=== PATIENT | female | born 1960 | race Caucasian/White ===

== ENCOUNTER 2019-12-15 09:55 | Emergency (ER) | payer SELFPAY ==
[~2019-12-15] VITALS: Ht 154.9 cm; Wt 56.7 kg
[~2019-12-15 09:55] MED LIST: LEVO25TA6 PO; SIMV5TAB50 PO
[2019-12-15 10:11] VITALS: BP 100/71
[2019-12-15 10:53] LABS: Urine Bacteria FEW /hpf (None Seen); Urine Blood Negative /uL (Negative); Urine Specific Gravity 1.021 (1.001-1.035); Urine WBC 14 /hpf (0 - 5)
[2019-12-15] MEDS ORDERED: PHENAZOPYRIDINE HCL 100 MG TAB PO ONE (11:15)
[2019-12-15] MEDS ORDERED: cefTRIAXone SOD 1,000 MG VL IM ONE (11:15)
== END 2019-12-15 11:30 | disposition home or self-care (01) ==
LOC: ER 09:55
DX: N39.0 Urinary tract infection, site not specified (principal); E78.5 Hyperlipidemia, unspecified; F17.210 Nicotine dependence, cigarettes, uncomplicated; Z90.710 Acquired absence of both cervix and uterus
CPT/HCPCS: 81001; 96372; 99283; J0696